=== PATIENT | male | born 1965 | race Caucasian/White ===

== ENCOUNTER → 2017-04-10 | Outpatient (CLI) | payer OTHER ==
[~2017-04-10] MED LIST: ALAVERT10 MG/TAB PO; ALBUTEROL17 GM INH; ASPIRIN325 M1 PO; BAYER ASPIRIN325 M1 PO; BYSTOLIC5 MG PO; CEPHALEXIN500 M1 PO; COZAAR100 MG PO; DIOVAN HCT 1601 EACH PO; DIOVAN PO; HYDROCHLOROTHIA25 MG PO; LOPRESSOR PO; NIACIN500 M2 PO; NIASPAN1000 MG PO; NORCO 5/325 TAB1 TAB PO; SPIRIVA18 MCG PO; SULFAMETHOXAZO1 EAC1 PO; UNKNOWN BP MED
--- NOTE | ~2017-04-10 | CR71 ---
[facility] A Service of [facility] & [facility] RADIOLOGY TEXT RESULTS PATIENT: AN LUEVANO LOCATION: [facility] : 63 UNIT #: [id number] AGE: [address]: REJI WATSON MD SEX: M ORDER DR: [id number] [facility] [address] [place], [place] [address] [id number] O MR#: [id number] Acc #: [id number] NAME: AN LUEVANO : 1965 SEX: M STUDY DATE/TIME: 04/10/2017 11:54 UNIT: [facility] ROOM: STUDY DESCRIPTION: CR Chest Single View Attending Physician: Reji Watson D.P.M. Referring Physician: Reji Watson D.P.M. Ordering Physician: Physician Non-Staff Primary Care Physician: Love King A.P.R.N. MEDICAL IMAGING REPORT This report is preliminary unless electronic signature is present EXAM Chest single view 04/10/2017 HISTORY 51-year-old male patient preop knee pain left leg, difficulty walking. Symptoms x2 months. History of high blood pressure smoker. COMPARISON Chest 06/15/2015. FINDINGS AP upright portable chest demonstrates normal cardiac size and configuration. Aorta and hilar structures are normal. Bilateral lungs are expanded and clear. IMPRESSION Negative chest. No acute finding. Dictated by... Coy Holder M.D. THIS IS AN ELECTRONICALLY VERIFIED REPORT Coy Holder M.D. at 04/11/2017 8:21 AM DEWAYNE/rai TD: 04/10/2017 16:20 JOB #: [id number] MEDICAL IMAGING REPORT Page 1 of 1 COPY
--- NOTE | ~2017-04-10 | EKG ---
PATIENT: AN LUEVANO UNIT #: [id number] Ventricular Rate: 54 BPM Atrial Rate: 54 BPM P-R Interval: 138 ms QRS Duration: 94 ms Q-T Interval: 422 ms QTC Calculation(Bezet): 400 ms P Phoenix: 49 degrees Calculated R Phoenix: 11 degrees Calculated T Phoenix: 16 degrees Diagnosis Line: Sinus bradycardia Diagnosis Line: Otherwise normal ECG Diagnosis Line: When compared with ECG of 30-APR-2016 12:53, Diagnosis Line: Premature ventricular complexes are no longer Diagnosis Line: Present Diagnosis Line: Confirmed by BORIS CROW MD ([id number]) on 04/10/2017 Diagnosis Line: 7:47:07 PM INTERPRETING MD: MIGNON BURT
[2017-04-10 11:37] LABS: HEMATOCRIT 45.2 % (38.0-50.0); MEAN CELL VOLUME 89.7 FL (83-96); MEAN CORPUSCULAR HEMOGLOBIN 31.7 PG (28-34); MEAN CORPUSCULAR HGB CONC 35.4 g/dL (30-36); MEAN PLATELET VOLUME 8.2 FL (6.5-11.5); RED BLOOD COUNT 5.04 X10e (3.90-5.60); RED CELL DISTRIBUTION WIDTH 13.4 % (11.0-15.5); WHITE BLOOD COUNT 8.2 X10e3 (4.0-10.5)
[2017-04-10 11:51] LABS: INR 1.1; PARTIAL THROMBOPLASTIN TIME 23.3 SECONDS (23.5-31.3); PROTHROMBIN TIME (PATIENT) 11.4 SECONDS (10.0-11.7)
[2017-04-10 12:03] LABS: BUN/CREATININE RATIO 21.11; CALCIUM SERUM 9.3 mg/dL (8.4-10.2); CREATININE SERUM 0.9 mg/dL (0.6-1.4); GLOM FILT RATE Estimated 97.9 mL/min (>60); POTASSIUM 4.6 mmol/L (3.5-5.1)
== END | disposition home or self-care (01) ==
LOC: CLAB 11:07
PROVIDERS: Podiatrist
DX: Z01.818 Encounter for other preprocedural examination (principal); M79.605 Pain in left leg; R26.2 Difficulty in walking, not elsewhere classified
CPT/HCPCS: 36415; 71010; 80048; 85027; 85610; 85730; 93005

== ENCOUNTER 2017-05-28 18:00 | Emergency (ER) | payer OTHER ==
[~2017-05-28] VITALS: Ht 188 cm; Wt 136.1 kg
== END 2017-05-28 22:04 | disposition home or self-care (01) ==
LOC: CED 18:00
DX: I82.402 Acute embolism and thrombosis of unspecified deep veins of left lower extremity (principal); Z79.82 Long term (current) use of aspirin; Z79.899 Other long term (current) drug therapy
CPT/HCPCS: 99283

== ENCOUNTER → 2017-05-28 | Outpatient (CLI) | payer OTHER ==
--- NOTE | ~2017-05-28 | US85 ---
[facility] A Service of [facility] & [facility] RADIOLOGY TEXT RESULTS PATIENT: AN LUEVANO LOCATION: [facility] : 63 UNIT #: [id number] AGE: [address]: REJI WATSON MD SEX: M ORDER DR: [id number] [facility] [address] [place], [place] [address] [id number] O MR#: [id number] Acc #: [id number] NAME: AN LUEVANO : 1965 SEX: M STUDY DATE/TIME: 05/28/2017 17:16 UNIT: [facility] ROOM: STUDY DESCRIPTION: [facility] [employer] Attending Physician: Reji Watson D.P.M. Referring Physician: Reji Watson D.P.M. Ordering Physician: Physician Non-Staff Primary Care Physician: Love King A.P.R.N. MEDICAL IMAGING REPORT This report is preliminary unless electronic signature is present EXAMINATION Left lower extremity venous duplex, 05/28/2017. HISTORY Left posterior distal calf pain and edema for the past 2 days, status post removal of cast from left lower extremity after Achilles tendon surgery 05/10/2017. Evaluate for deep vein thrombosis. FINDINGS Pinto-scale images of the left lower extremity were obtained as well as Doppler waveform, spectral analysis and color flow Doppler imaging. The examination is abnormal demonstrating nonocclusive thrombus in the left posterior tibial vein and occlusive thrombus in the left peroneal vein. There is normal blood flow and compressibility in the left common femoral vein, deep femoral vein, superficial femoral vein and popliteal vein and the left anterior tibial vein. IMPRESSION Abnormal examination demonstrating occlusive thrombus in the left peroneal vein and nonocclusive thrombus in the left posterior tibial vein. STAT * RESULT Dictated by... Scott Shin M.D. THIS IS AN ELECTRONICALLY VERIFIED REPORT Scott Shin M.D. at 05/30/2017 8:36 AM [facility]. [facility] A Service of [facility] & [facility] RADIOLOGY TEXT RESULTS PATIENT: AN LUEVANO LOCATION: [facility] : 63 UNIT #: [id number] AGE: [address]: REJI WATSON MD SEX: M ORDER DR: TD: 05/28/2017 17:57 JOB #: [id number] MEDICAL IMAGING REPORT Page 1 of 1 COPY
== END | disposition home or self-care (01) ==
LOC: CNIV 16:46
DX: M79.662 Pain in left lower leg (principal); R26.2 Difficulty in walking, not elsewhere classified; I82.442 Acute embolism and thrombosis of left tibial vein; I82.492 Acute embolism and thrombosis of other specified deep vein of left lower extremity
CPT/HCPCS: 93971